=== PATIENT | female | born 1935 | race Caucasian/White ===

== ENCOUNTER 2020-11-02 13:42 | Inpatient (IN) ==
[2020-11-02] MEDS ORDERED: 0.9 % Sodium Chloride 1,000 ML IVC ONE (14:01)
[2020-11-02] MEDS ORDERED: 0.9 % Sodium Chloride 1,000 ML IVC SCH ×2 (14:15→16:00)
[2020-11-02 14:35] LABS: Hematocrit 32.4 % (35.3-44.9); Hemoglobin 11.1 g/dL (11.5-15.4); Mean Corpuscular HGB Conc 34.3 g/dL (31.6-35.5); Mean Corpuscular Hemoglobin 31.8 pg (28.0-33.3); Mean Corpuscular Volume 92.8 fL (83.0-100.0); Mean Platelet Volume 10.8 fL (9.4-12.4); Red Blood Count 3.49 M/mcL (3.82-4.97); White Blood Count 3.9 K/mcL (4.3-11.1)
[2020-11-02 14:40] LABS: Platelet Count 72 K/mcL (140-400)
[2020-11-02 14:53] LABS: Troponin I < 0.03 ng/mL (< 0.04)
[2020-11-02 15:02] LABS: Alanine Aminotransferase 14 Units/L (7-52); Albumin 3.1 g/dL (3.5-5.7); Albumin/Globulin Ratio 1.1 (1.1-2.2); Alkaline Phosphatase 40 Units/L (34-104); Aspartate Amino Transferase 13 Units/L (13-39); BUN/Creatinine Ratio 39 (6-26); Bilirubin,Direct 0.1 mg/dL (0.0-0.2); Bilirubin,Indirect 0.5 mg/dL (0.0-1.0); Bilirubin,Total 0.6 mg/dL (0.3-1.0); Blood Urea Nitrogen 77 mg/dL (8-23); Calcium 8.6 mg/dL (8.6-10.3); Carbon Dioxide 19 mEq/L (23-29); Chloride 98 mEq/L (98-107); Globulin 2.7 g/dL (2.4-3.5); Glucose 186 mg/dL (70-105); Lymphocytes # 0.5 K/mcL (0.6-4.6); Monocytes # 0.2 K/mcL (0.0-1.3); Neutrophils # 3.3 K/mcL (1.6-8.9); Osmolality,Calculated 304 (280-300); Platelet Estimate Decreased (Normal); Potassium 3.5 mEq/L (3.5-5.1); Sodium 133 mEq/L (136-145); Total Protein 5.8 g/dL (6.4-8.9); eGFR For African Americans 29 (> 60); eGFR For Non-African Americans 24 (> 60)
[2020-11-02] MEDS ORDERED: MetroNIDAZOLE 500 MG/100 ML 500 MG/100 ML BAG IVPB ONE (15:41)
[2020-11-02] MEDS ORDERED: Acetaminophen 325 MG TABLET PO PRN (15:57)
[2020-11-02] MEDS ORDERED: Ondansetron 4 MG/2 ML VIAL IVP PRN (15:57)
[2020-11-02] MEDS ORDERED: Naloxone 0.4 MG/ML INJ IVP PRN (15:57)
[2020-11-02] MEDS: FLUoxetine 20 MG CAPSULE PO SCH (20:13)
[2020-11-02] MEDS: Magic Mouthwash 10 ML UD Cup PO SCH (20:13)
[2020-11-03] MEDS ORDERED: 0.9 % Sodium Chloride 1,000 ML IVC SCH
[2020-11-03] MEDS: MetroNIDAZOLE 500 MG/100 ML 500 MG/100 ML BAG IVPB SCH ×4 (00:32→23:46)
[2020-11-03] MEDS: Melatonin 3 MG TABLET PO PRN (01:01)
[2020-11-03 01:48] LABS: Bilirubin,Urine Small (Negative); Blood,Urine Negative (Negative); Clarity,Urine Clear (Clear); Color,Urine Yellow (Yellow); Glucose,Urine (UA) Normal (Normal); Ketones,Urine Negative (Negative); Leukocyte Esterase,Urine Negative (Negative); Nitrite,Urine Negative (Negative); Protein,Urine Negative (Neg-Trace); Urobilinogen,Urine Normal (Normal)
[2020-11-03 08:08] LABS: Calcium 7.6 mg/dL (8.6-10.3); Magnesium 1.5 mg/dL (1.6-2.6); Potassium 3.3 mEq/L (3.5-5.1)
[2020-11-03] MEDS ORDERED: Potassium Chloride Elixir 20 MEQ/15 ML UDC PO ONE (08:18)
[2020-11-03 08:25] LABS: Basophils % 0.3 %; Eosinophils # 0.4 K/mcL (0.0-0.6); Eosinophils % 11.5 %; Hematocrit 31.5 % (35.3-44.9); Hemoglobin 10.6 g/dL (11.5-15.4); Immature Granulocytes % 0.9 % (0-4); Lymphocytes # 0.6 K/mcL (0.6-4.6); Mean Corpuscular HGB Conc 33.7 g/dL (31.6-35.5); Mean Corpuscular Hemoglobin 31.4 pg (28.0-33.3); Mean Corpuscular Volume 93.2 fL (83.0-100.0); Mean Platelet Volume 10.9 fL (9.4-12.4); Monocytes # 0.2 K/mcL (0.0-1.3); Monocytes % 7.5 %; Platelet Count 55 K/mcL (140-400); Red Blood Count 3.38 M/mcL (3.82-4.97); Red Cell Distribution Width 14.2 % (11.5-14.5); Segmented Neutrophils % 61.8 %; White Blood Count 3.2 K/mcL (4.3-11.1)
[2020-11-03 09:11] LABS: Platelet Estimate Decreased (Normal)
[2020-11-03 09:12] LABS: Anisocytosis 1+ (Not Present)
[2020-11-03] MEDS: (Leflunomide [Arava] 20 MG Tablet) PO SCH (10:02)
[2020-11-03] MEDS: FLUoxetine 20 MG CAPSULE PO SCH ×2 (10:12→21:11)
[2020-11-03] MEDS: Fenofibrate 54 MG TABLET PO SCH (10:13)
[2020-11-03] MEDS: Aspirin Enteric Coated 81 MG Tablet PO SCH (10:13)
[2020-11-03] MEDS: amLODIPine 5 MG TABLET PO SCH (10:13)
[2020-11-03] MEDS: Magic Mouthwash 10 ML UD Cup PO SCH ×2 (10:13→21:11)
[2020-11-03] MEDS: Losartan/HCTZ 50-12.5 TABLET PO SCH (10:13)
[2020-11-03] MEDS: Loratadine 10 MG TABLET PO SCH (10:13)
[2020-11-03] MEDS ORDERED: Hydrocortisone Rectal 2.5% CRM 28 GM TUBE RC PRN (10:30)
[2020-11-03] MEDS: 0.9 % Sodium Chloride 1,000 ML IVC SCH (15:33)
[2020-11-04] MEDS: 0.9 % Sodium Chloride 1,000 ML IVC SCH ×2 (08:43→16:08)
[2020-11-04] MEDS: (Leflunomide [Arava] 20 MG Tablet) PO SCH (08:58)
[2020-11-04] MEDS: Loratadine 10 MG TABLET PO SCH (09:03)
[2020-11-04] MEDS: FLUoxetine 20 MG CAPSULE PO SCH ×2 (09:03→21:12)
[2020-11-04] MEDS: amLODIPine 5 MG TABLET PO SCH (09:03)
[2020-11-04] MEDS: Fenofibrate 54 MG TABLET PO SCH (09:03)
[2020-11-04] MEDS: Aspirin Enteric Coated 81 MG Tablet PO SCH (09:03)
[2020-11-04] MEDS: Magic Mouthwash 10 ML UD Cup PO SCH ×3 (09:03→16:11)
[2020-11-04 09:10] LABS: Basophils % 0.2 %; Eosinophils # 0.9 K/mcL (0.0-0.6); Eosinophils % 18.8 %; Hematocrit 29.7 % (35.3-44.9); Hemoglobin 9.9 g/dL (11.5-15.4); Lymphocytes % 21.6 %; Mean Corpuscular HGB Conc 33.3 g/dL (31.6-35.5); Mean Corpuscular Hemoglobin 31.5 pg (28.0-33.3); Mean Corpuscular Volume 94.6 fL (83.0-100.0); Mean Platelet Volume 10.7 fL (9.4-12.4); Monocytes # 0.5 K/mcL (0.0-1.3); Monocytes % 11.8 %; Neutrophils # 2.1 K/mcL (1.6-8.9); Nucleated Red Blood Cells 0.7 /100 WBC (0); Platelet Count 106 K/mcL (140-400); Red Blood Count 3.14 M/mcL (3.82-4.97); Red Cell Distribution Width 14.4 % (11.5-14.5); Segmented Neutrophils % 45.6 %; White Blood Count 4.6 K/mcL (4.3-11.1)
[2020-11-04] MEDS: MetroNIDAZOLE 500 MG/100 ML 500 MG/100 ML BAG IVPB SCH ×2 (09:20→18:05)
[2020-11-04 09:25] LABS: Calcium 8.1 mg/dL (8.6-10.3); Potassium 3.5 mEq/L (3.5-5.1)
[2020-11-04] MEDS ORDERED: haloperidoL 1 MG TABLET PO PRN (12:05)
[2020-11-04] MEDS: Sucralfate 1 GM TABLET PO SCH ×2 (16:11→21:12)
[2020-11-04] MEDS: Pantoprazole 40 MG VIAL IVP SCH (18:05)
[2020-11-05] MEDS: 0.9 % Sodium Chloride 1,000 ML IVC SCH ×2 (01:25→17:41)
[2020-11-05] MEDS: MetroNIDAZOLE 500 MG/100 ML 500 MG/100 ML BAG IVPB SCH ×2 (01:26→09:45)
[2020-11-05] MEDS: Pantoprazole 40 MG VIAL IVP SCH ×2 (06:02→17:42)
[2020-11-05 09:28] LABS: Hematocrit 25.8 % (35.3-44.9); Hemoglobin 8.5 g/dL (11.5-15.4); Mean Corpuscular HGB Conc 32.9 g/dL (31.6-35.5); Mean Corpuscular Hemoglobin 31.5 pg (28.0-33.3); Mean Corpuscular Volume 95.6 fL (83.0-100.0); Mean Platelet Volume 11.2 fL (9.4-12.4); Nucleated Red Blood Cells 0.7 /100 WBC (0); Platelet Count 147 K/mcL (140-400); Red Cell Distribution Width 14.7 % (11.5-14.5); White Blood Count 4.3 K/mcL (4.3-11.1)
[2020-11-05] MEDS: Sucralfate 1 GM TABLET PO SCH ×4 (09:39→21:41)
[2020-11-05] MEDS: (Leflunomide [Arava] 20 MG Tablet) PO SCH (09:39)
[2020-11-05 09:41] LABS: Calcium 7.8 mg/dL (8.6-10.3); Potassium 3.1 mEq/L (3.5-5.1)
[2020-11-05] MEDS: Magic Mouthwash 10 ML UD Cup PO SCH ×3 (09:44→17:23)
[2020-11-05] MEDS: Fenofibrate 54 MG TABLET PO SCH (09:46)
[2020-11-05] MEDS: Loratadine 10 MG TABLET PO SCH (09:46)
[2020-11-05] MEDS: FLUoxetine 20 MG CAPSULE PO SCH ×2 (09:46→21:41)
[2020-11-05] MEDS: amLODIPine 5 MG TABLET PO SCH (09:46)
[2020-11-05 10:57] LABS: Campylobacter by PCR Not detected (Not detect)
[2020-11-05 11:00] LABS: Adenovirus F 40/41 PCR Not detected (Not detect); Astrovirus PCR Not detected (Not detect); C.difficile Toxin A/B Gene PCR DETECTED (Not detect); Cryptosporidium by PCR Not detected (Not detect); Cyclospora cayetanensis PCR Not detected (Not detect); E. coli O157 by PCR Not detected (Not detect); Entamoeba histolytica PCR Not detected (Not detect); Enteroaggregative E.coli(EAEC) Not detected (Not detect); Enteropathogenic E.coli(EPEC) Not detected (Not detect); Enterotoxigenic E.coli (ETEC) Not detected (Not detect); Giardia lamblia PCR Not detected (Not detect); Norovirus GI/GII PCR Not detected (Not detect); Plesiomonas shigelloides PCR Not detected (Not detect); Rotavirus A PCR Not detected (Not detect); Salmonella PCR Not detected (Not detect); Sapovirus PCR Not detected (Not detect); Shig/EnteroinvasiveE coli EIEC Not detected (Not detect); Shigalike tox-prod E coli STEC Not detected (Not detect); Vibrio PCR Not detected (Not detect); Vibrio cholerae PCR Not detected (Not detect); Yersinia enterocolitica PCR Not detected (Not detect)
[2020-11-05] MEDS: Vancomycin Oral Soln 125 MG/2.5 ML UDC PO SCH ×3 (12:08→21:41)
[2020-11-05 12:22] LABS: Eosinophils # 1.1 K/mcL (0.0-0.6); Monocytes # 0.6 K/mcL (0.0-1.3); Neutrophils # 1.6 K/mcL (1.6-8.9)
[2020-11-05 12:25] LABS: Platelet Estimate Normal (Normal)
[2020-11-06] MEDS: Pantoprazole 40 MG VIAL IVP SCH ×2 (05:15→17:20)
[2020-11-06] MEDS: 0.9 % Sodium Chloride 1,000 ML IVC SCH (06:32)
[2020-11-06 08:50] LABS: Basophils # 0.1 K/mcL (0.0-0.2); Hematocrit 28.8 % (35.3-44.9); Hemoglobin 9.3 g/dL (11.5-15.4); Mean Corpuscular HGB Conc 32.3 g/dL (31.6-35.5); Mean Platelet Volume 10.9 fL (9.4-12.4); Nucleated Red Blood Cells 0.8 /100 WBC (0); Platelet Count 273 K/mcL (140-400); Red Cell Distribution Width 15.2 % (11.5-14.5); White Blood Count 6.2 K/mcL (4.3-11.1)
[2020-11-06 09:18] LABS: Calcium 7.9 mg/dL (8.6-10.3); Potassium 4.1 mEq/L (3.5-5.1)
[2020-11-06] MEDS: Loratadine 10 MG TABLET PO SCH (09:33)
[2020-11-06] MEDS: Sucralfate 1 GM TABLET PO SCH ×4 (09:33→21:00)
[2020-11-06] MEDS: Fenofibrate 54 MG TABLET PO SCH (09:33)
[2020-11-06] MEDS: amLODIPine 5 MG TABLET PO SCH (09:33)
[2020-11-06] MEDS: FLUoxetine 20 MG CAPSULE PO SCH ×2 (09:33→21:00)
[2020-11-06] MEDS: Magic Mouthwash 10 ML UD Cup PO SCH ×3 (09:34→17:04)
[2020-11-06] MEDS: (Leflunomide [Arava] 20 MG Tablet) PO SCH (09:34)
[2020-11-06] MEDS: Vancomycin Oral Soln 125 MG/2.5 ML UDC PO SCH ×4 (09:34→21:00)
[2020-11-06 11:20] LABS: Eosinophils # 0.7 K/mcL (0.0-0.6); Lymphocytes # 1.7 K/mcL (0.6-4.6); Monocytes # 0.7 K/mcL (0.0-1.3); Neutrophils # 1.7 K/mcL (1.6-8.9); Platelet Estimate Normal (Normal)
[2020-11-06] MEDS: Melatonin 3 MG TABLET PO PRN (21:02)
[2020-11-07] MEDS: Pantoprazole 40 MG VIAL IVP SCH (05:44)
[2020-11-07 06:37] LABS: Hematocrit 24.8 % (35.3-44.9); Hemoglobin 8.1 g/dL (11.5-15.4); Lymphocytes # 1.9 K/mcL (0.6-4.6); Mean Corpuscular HGB Conc 32.7 g/dL (31.6-35.5); Mean Corpuscular Hemoglobin 31.2 pg (28.0-33.3); Mean Corpuscular Volume 95.4 fL (83.0-100.0); Mean Platelet Volume 10.3 fL (9.4-12.4); Nucleated Red Blood Cells 0.6 /100 WBC (0); Platelet Count 308 K/mcL (140-400); Red Cell Distribution Width 15.4 % (11.5-14.5); White Blood Count 8.1 K/mcL (4.3-11.1)
[2020-11-07 06:55] VITALS: RESP 18
[2020-11-07 07:32] LABS: Calcium 7.9 mg/dL (8.6-10.3); Potassium 4.1 mEq/L (3.5-5.1)
[2020-11-07 08:11] LABS: Eosinophils # 0.8 K/mcL (0.0-0.6); Monocytes # 1.3 K/mcL (0.0-1.3); Neutrophils # 2.9 K/mcL (1.6-8.9); Platelet Estimate Normal (Normal)
[2020-11-07] MEDS: FLUoxetine 20 MG CAPSULE PO SCH (08:16)
[2020-11-07] MEDS: amLODIPine 5 MG TABLET PO SCH (08:16)
[2020-11-07] MEDS: Fenofibrate 54 MG TABLET PO SCH (08:16)
[2020-11-07] MEDS: Loratadine 10 MG TABLET PO SCH (08:16)
[2020-11-07] MEDS: Losartan/HCTZ 50-12.5 TABLET PO SCH (08:16)
[2020-11-07] MEDS: (Leflunomide [Arava] 20 MG Tablet) PO SCH (08:16)
[2020-11-07] MEDS: Magic Mouthwash 10 ML UD Cup PO SCH ×2 (08:16→12:59)
[2020-11-07] MEDS: Sucralfate 1 GM TABLET PO SCH ×2 (08:16→12:59)
[2020-11-07] MEDS: Vancomycin Oral Soln 125 MG/2.5 ML UDC PO SCH ×2 (08:16→12:59)
[2020-11-07 12:49] VITALS: BP 110/71; PULSE 82; TEMP 97.9; O2SAT 98
== END 2020-11-07 15:22 | disposition home health service (06) | DRG 372 ==
LOC: INPPIK 13:42 → EMEROOPIK 13:42 → INPPIK 18:14
PROVIDERS: ADMIT Family Medicine; ATTEND Family Medicine

== ENCOUNTER 2021-01-07 16:26 | Observation (INO) ==
[2021-01-07] MEDS ORDERED: Acetaminophen 325 MG TABLET PO ONE (16:34)
[2021-01-07 16:54] LABS: Basophils # 0.1 K/mcL (0.0-0.2); Basophils % 0.7 %; Eosinophils % 0.1 %; Hematocrit 31.2 % (35.3-44.9); Hemoglobin 10.1 g/dL (11.5-15.4); Immature Granulocytes % 0.4 % (0-4); Lymphocytes # 2.1 K/mcL (0.6-4.6); Lymphocytes % 29.6 %; Mean Corpuscular HGB Conc 32.4 g/dL (31.6-35.5); Mean Corpuscular Hemoglobin 31.4 pg (28.0-33.3); Mean Corpuscular Volume 96.9 fL (83.0-100.0); Mean Platelet Volume 9.4 fL (9.4-12.4); Monocytes # 0.8 K/mcL (0.0-1.3); Monocytes % 11.1 %; Neutrophils # 4.2 K/mcL (1.6-8.9); Platelet Count 215 K/mcL (140-400); Red Blood Count 3.22 M/mcL (3.82-4.97); Red Cell Distribution Width 14.7 % (11.5-14.5); Segmented Neutrophils % 58.1 %; White Blood Count 7.2 K/mcL (4.3-11.1)
[2021-01-07 17:14] LABS: Alanine Aminotransferase 21 Units/L (7-52); Albumin 3.8 g/dL (3.5-5.7); Albumin/Globulin Ratio 1.5 (1.1-2.2); Alkaline Phosphatase 31 Units/L (34-104); Aspartate Amino Transferase 26 Units/L (13-39); BUN/Creatinine Ratio 21 (6-26); Bilirubin,Total 0.4 mg/dL (0.3-1.0); Blood Urea Nitrogen 40 mg/dL (8-23); Calcium 9.9 mg/dL (8.6-10.3); Carbon Dioxide 27 mEq/L (23-29); Chloride 102 mEq/L (98-107); Globulin 2.6 g/dL (2.4-3.5); Glucose 104 mg/dL (70-105); Osmolality,Calculated 296 (280-300); Sodium 138 mEq/L (136-145); Total Protein 6.4 g/dL (6.4-8.9); eGFR For African Americans 31 (> 60); eGFR For Non-African Americans 25 (> 60)
[2021-01-07 17:19] LABS: Troponin I < 0.03 ng/mL (< 0.04)
[2021-01-07 17:32] LABS: Thyroid Stimulating Hormone 2.892 mcIU/mL (0.340-5.600)
[2021-01-07] MEDS ORDERED: *HR* OxyCODONE Immed Rel 5 MG TABLET PO PRN (17:44)
[2021-01-07] MEDS ORDERED: Naloxone 0.4 MG/ML INJ IVP PRN (17:44)
[2021-01-07] MEDS ORDERED: Ondansetron ODT 4 MG TAB.RAPDIS SL PRN (17:44)
[2021-01-07] MEDS: FLUoxetine 20 MG CAPSULE PO SCH (21:39)
[2021-01-08 01:48] LABS: Bilirubin,Urine Negative (Negative); Blood,Urine Negative (Negative); Clarity,Urine Clear (Clear); Color,Urine Yellow (Yellow); Glucose,Urine (UA) Normal (Normal); Ketones,Urine Negative (Negative); Leukocyte Esterase,Urine Negative (Negative); Nitrite,Urine Negative (Negative); Protein,Urine Negative (Neg-Trace); Specific Gravity,Urine 1.025 (1.010-1.025); Urobilinogen,Urine Normal (Normal)
[2021-01-08 06:56] LABS: Hematocrit 31.7 % (35.3-44.9); Hemoglobin 10.3 g/dL (11.5-15.4); Mean Corpuscular HGB Conc 32.5 g/dL (31.6-35.5); Mean Corpuscular Hemoglobin 31.5 pg (28.0-33.3); Mean Corpuscular Volume 96.9 fL (83.0-100.0); Mean Platelet Volume 10.3 fL (9.4-12.4); Platelet Count 212 K/mcL (140-400); Red Blood Count 3.27 M/mcL (3.82-4.97); Red Cell Distribution Width 14.6 % (11.5-14.5); White Blood Count 7.3 K/mcL (4.3-11.1)
[2021-01-08 07:30] LABS: Calcium 9.7 mg/dL (8.6-10.3)
[2021-01-08] MEDS: Cholecalciferol (D-3) 1,000 UNIT (25MCG) TABLET PO SCH (08:44)
[2021-01-08] MEDS: Losartan/HCTZ 50-12.5 TABLET PO SCH (08:44)
[2021-01-08] MEDS: Aspirin Enteric Coated 81 MG Tablet PO SCH (08:44)
[2021-01-08] MEDS: FLUoxetine 20 MG CAPSULE PO SCH ×2 (08:44→20:54)
[2021-01-08] MEDS: Loratadine 10 MG TABLET PO SCH (08:44)
[2021-01-08] MEDS: Fenofibrate 54 MG TABLET PO SCH (08:44)
[2021-01-08] MEDS: amLODIPine 5 MG TABLET PO SCH (08:45)
[2021-01-08] MEDS: Acetaminophen 325 MG TABLET PO PRN (08:51)
[2021-01-08] MEDS ORDERED: (Leflunomide [Arava] 20 MG Tablet) PO SCH (09:00)
[2021-01-09] MEDS: amLODIPine 5 MG TABLET PO SCH (10:08)
[2021-01-09] MEDS: Acetaminophen 325 MG TABLET PO PRN (10:08)
[2021-01-09] MEDS: FLUoxetine 20 MG CAPSULE PO SCH ×2 (10:08→20:15)
[2021-01-09] MEDS: Losartan/HCTZ 50-12.5 TABLET PO SCH (10:08)
[2021-01-09] MEDS: Cholecalciferol (D-3) 1,000 UNIT (25MCG) TABLET PO SCH (10:08)
[2021-01-09] MEDS: Aspirin Enteric Coated 81 MG Tablet PO SCH (10:08)
[2021-01-09] MEDS: Fenofibrate 54 MG TABLET PO SCH (10:08)
[2021-01-09] MEDS: Loratadine 10 MG TABLET PO SCH (10:08)
[2021-01-09] MEDS: QUEtiapine Fumarate 25 MG TABLET PO SCH (20:16)
[2021-01-10] MEDS: Fenofibrate 54 MG TABLET PO SCH (09:10)
[2021-01-10] MEDS: Acetaminophen 325 MG TABLET PO PRN (09:10)
[2021-01-10] MEDS: Aspirin Enteric Coated 81 MG Tablet PO SCH (09:11)
[2021-01-10] MEDS: FLUoxetine 20 MG CAPSULE PO SCH ×2 (09:11→21:32)
[2021-01-10] MEDS: Loratadine 10 MG TABLET PO SCH (09:11)
[2021-01-10] MEDS: Cholecalciferol (D-3) 1,000 UNIT (25MCG) TABLET PO SCH (09:11)
[2021-01-10] MEDS: Losartan/HCTZ 50-12.5 TABLET PO SCH (09:11)
[2021-01-10] MEDS: amLODIPine 5 MG TABLET PO SCH (09:11)
[2021-01-10] MEDS: *HR* HYDROcodone/Acet 5/325 mg TABLET PO PRN (16:28)
[2021-01-10] MEDS: QUEtiapine Fumarate 25 MG TABLET PO SCH (21:33)
[2021-01-11] MEDS: Fenofibrate 54 MG TABLET PO SCH (09:20)
[2021-01-11] MEDS: Losartan/HCTZ 50-12.5 TABLET PO SCH (09:20)
[2021-01-11] MEDS: amLODIPine 5 MG TABLET PO SCH (09:21)
[2021-01-11] MEDS: Aspirin Enteric Coated 81 MG Tablet PO SCH (09:21)
[2021-01-11] MEDS: FLUoxetine 20 MG CAPSULE PO SCH ×2 (09:21→21:26)
[2021-01-11] MEDS: Loratadine 10 MG TABLET PO SCH (09:21)
[2021-01-11] MEDS: Cholecalciferol (D-3) 1,000 UNIT (25MCG) TABLET PO SCH (09:21)
[2021-01-11] MEDS: *HR* HYDROcodone/Acet 5/325 mg TABLET PO PRN (09:22)
[2021-01-11] MEDS: QUEtiapine Fumarate 25 MG TABLET PO SCH (21:26)
[2021-01-12] MEDS: *HR* HYDROcodone/Acet 5/325 mg TABLET PO PRN ×2 (09:09→20:19)
[2021-01-12] MEDS: amLODIPine 5 MG TABLET PO SCH (09:09)
[2021-01-12] MEDS: Loratadine 10 MG TABLET PO SCH (09:10)
[2021-01-12] MEDS: Aspirin Enteric Coated 81 MG Tablet PO SCH (09:10)
[2021-01-12] MEDS: FLUoxetine 20 MG CAPSULE PO SCH ×2 (09:10→20:16)
[2021-01-12] MEDS: Cholecalciferol (D-3) 1,000 UNIT (25MCG) TABLET PO SCH (09:10)
[2021-01-12] MEDS: Losartan/HCTZ 50-12.5 TABLET PO SCH (09:10)
[2021-01-12] MEDS: Fenofibrate 54 MG TABLET PO SCH (09:10)
[2021-01-12] MEDS: QUEtiapine Fumarate 25 MG TABLET PO SCH (20:16)
[2021-01-13 02:13] VITALS: RESP 20
[2021-01-13 06:26] VITALS: BP 120/65; PULSE 71; TEMP 98.3; O2SAT 96
[2021-01-13] MEDS: amLODIPine 5 MG TABLET PO SCH (08:14)
[2021-01-13] MEDS: Cholecalciferol (D-3) 1,000 UNIT (25MCG) TABLET PO SCH (08:14)
[2021-01-13] MEDS: Aspirin Enteric Coated 81 MG Tablet PO SCH (08:14)
[2021-01-13] MEDS: FLUoxetine 20 MG CAPSULE PO SCH (08:14)
[2021-01-13] MEDS: Loratadine 10 MG TABLET PO SCH (08:14)
[2021-01-13] MEDS: Fenofibrate 54 MG TABLET PO SCH (08:14)
[2021-01-13] MEDS: Losartan/HCTZ 50-12.5 TABLET PO SCH (08:14)
== END 2021-01-13 12:38 ==
LOC: EMEROOPIK 16:26 → INPPIK 16:26
PROVIDERS: ADMIT Internal Medicine; ATTEND Internal Medicine